=== PATIENT | female | born 1945 | race Caucasian/White ===

== ENCOUNTER 2019-05-09 16:45 | Inpatient (IN) | payer OTHER, MEDICAID ==
[~2019-05-09] VITALS: Ht 165.1 cm; Wt 70.8 kg
[2019-05-09 16:59] VITALS: BP_SYST 117
[2019-05-09] MEDS ORDERED: ALBUTEROL SULFATE 0.083% 2.5 MG/3 ML VIAL.NEB INH ONE ×2 (17:30→19:15)
[2019-05-09] MEDS ORDERED: LEVOFLOXACIN 500 MG/D5W 100 ML IV ONE (17:30)
[2019-05-09 17:52] LABS: BASOPHILS % (AUTO) 0.2 % (0.0-2.0); HEMATOCRIT 38.3 % (36-48); HEMOGLOBIN 12.3 g/dL (12.0-16.0); LYMPHOCYTES # (AUTO) 0.3 K/uL (1.0-5.5); LYMPHOCYTES % (AUTO) 2.6 % (20.5-51.5); MEAN CORPUSCULAR HEMOGLOBIN 29 pg (27-31); MEAN CORPUSCULAR HGB CONC 32 % (32-36); MEAN CORPUSCULAR VOLUME 91 fL (79.0-98.0); MONOCYTES % (AUTO) 8.2 % (1.7-9.3); NEUTROPHILS # (AUTO) 11.3 K/uL (1.8-7.7); PLATELET COUNT (AUTO) 245 K/uL (130-430); RED BLOOD CELL COUNT(AUTO) 4.21 MIL/uL (4.2-6.2); RED CELL DISTRIBUTION WIDTH 14.7 % (9.0-15.0); WHITE BLOOD COUNT (AUTO) 12.7 K/uL (4.8-10.8)
[2019-05-09 18:10] LABS: ANION GAP 6 (5-15); CALCIUM 9.2 mg/dL (8.4-11.0); CHLORIDE 104 mmol/L (98-107); CREATININE 1.01 mg/dL (0.55-1.30); GLUCOSE 151 mg/dL (70-99); INR 1.2 (0.8-1.2); POTASSIUM 4.3 mmol/L (3.5-5.1); PROTHROMBIN TIME 11.7 SECS (9.5-12.5); SODIUM SERUM 139 mmol/L (136-145); UREA NITROGEN, BLOOD 33 mg/dL (8-21)
[2019-05-09 18:15] LABS: ALANINE AMINOTRANSFERASE 6 U/L (12-78); ASPARTATE AMINOTRANSFERASE 15 U/L (10-37); TOTAL BILIRUBIN 0.5 mg/dL (0.0-1.0)
[2019-05-09] MEDS ORDERED: PRO40 PO (18:57)
[2019-05-09] MEDS ORDERED: ATEN-41 PO (18:57)
[2019-05-09] MEDS ORDERED: APIX5TAB4 PO (18:57)
[2019-05-09] MEDS ORDERED: DOCU-144 PO (18:57)
[2019-05-09] MEDS ORDERED: LISI-600 PO (18:57)
[2019-05-09] MEDS ORDERED: NIFE-2 PO (18:57)
[2019-05-09] MEDS ORDERED: CARB-62 PO (18:57)
[2019-05-09] MEDS ORDERED: ROTI1PAT7 TP (18:57)
[2019-05-09] MEDS ORDERED: FUROSEMIDE 40 MG/4 ML VIAL IVP ONE (19:00)
[2019-05-09] MEDS ORDERED: OSELTAMIVIR PHOSPHATE 75 MG CAPSULE PO ONE (19:30)
[2019-05-09] MEDS ORDERED: NS 500 ML IV ONE (20:15)
[2019-05-09] MEDS ORDERED: NS 250 ML IV ONE (22:30)
[2019-05-10] VITALS (24 sets, daily range): BP systolic 89–143
[2019-05-10] MEDS ORDERED: LORazepam 2 MG/ML VIAL IVP ONE (00:30)
[2019-05-10] MEDS ORDERED: NS 250 ML IV ONE (04:30)
[2019-05-10] MEDS: NACL 0.9% 1,000 ML IV SCH ×2 (05:05→17:04)
[2019-05-10 05:36] LABS: BASOPHILS % (AUTO) 0.1 % (0.0-2.0); HEMATOCRIT 36.9 % (36-48); HEMOGLOBIN 11.9 g/dL (12.0-16.0); LYMPHOCYTES % (AUTO) 9.5 % (20.5-51.5); MEAN CORPUSCULAR HEMOGLOBIN 29 pg (27-31); MEAN CORPUSCULAR HGB CONC 32 % (32-36); MEAN CORPUSCULAR VOLUME 91 fL (79.0-98.0); MONOCYTES % (AUTO) 9.4 % (1.7-9.3); NEUTROPHILS # (AUTO) 8.4 K/uL (1.8-7.7); PLATELET COUNT (AUTO) 213 K/uL (130-430); RED BLOOD CELL COUNT(AUTO) 4.05 MIL/uL (4.2-6.2); RED CELL DISTRIBUTION WIDTH 14.7 % (9.0-15.0); WHITE BLOOD COUNT (AUTO) 10.4 K/uL (4.8-10.8)
[2019-05-10 05:38] LABS: ALANINE AMINOTRANSFERASE 12 U/L (12-78); ALBUMIN 2.4 g/dL (3.4-4.8); ANION GAP 3 (5-15); ASPARTATE AMINOTRANSFERASE 14 U/L (10-37); CALCIUM 8.8 mg/dL (8.4-11.0); CHLORIDE 107 mmol/L (98-107); GLUCOSE 110 mg/dL (70-99); SODIUM SERUM 143 mmol/L (136-145); TOTAL BILIRUBIN 0.4 mg/dL (0.0-1.0); UREA NITROGEN, BLOOD 36 mg/dL (8-21)
[2019-05-10 07:55] LABS: THYROID STIMULATING HORMONE 1.05 uIu/mL (0.36-3.74)
[2019-05-10] MEDS: cefTRIAXone 1 GM in D5W 50 ML IV SCH (08:59)
[2019-05-10] MEDS: DOCUSATE SODIUM 100 MG CAPSULE PO SCH ×2 (09:00→20:22)
[2019-05-10] MEDS: PANTOPRAZOLE SODIUM 40 MG TAB PO SCH (09:00)
[2019-05-10] MEDS: IPRATROPIUM BROM 0.5 MG/2.5 ML VIAL.NEB (ATROVENT) INH SCH ×2 (13:00→19:00)
[2019-05-10] MEDS: ALBUTEROL SULFATE 0.083% 2.5 MG/3 ML VIAL.NEB INH SCH ×2 (13:00→19:00)
[2019-05-10] MEDS ORDERED: methylPREDNISolone SOD SUCC/PF 62.5 MG/ML VIAL IVP ONE (15:45)
[2019-05-10 20:02] LABS: BILIRUBIN,URINE NEGATIVE (NEGATIVE); BLOOD, URINE 1+ (NEGATIVE); CLARITY/URINE CLEAR (CLEAR); COLOR,URINE YELLOW (YELLOW); GLUCOSE,URINE NEGATIVE (NEGATIVE); KETONES,URINE 2+ (NEGATIVE); LEUKOCYTE ESTERASE ,URINE NEGATIVE (NEGATIVE); NITRITE, URINE NEGATIVE (NEGATIVE); PH,URINE 6.5 (5.0-8.0); PROTEIN URINE NEGATIVE (NEGATIVE)
[2019-05-10 20:03] LABS: BACTERIA,URINE FEW /HPF (None Seen)
[2019-05-10 20:04] LABS: MUCUS,URINE None Seen /LPF (None Seen)
[2019-05-10] MEDS: APIXABAN 2.5 MG TABLET PO SCH (20:22)
[2019-05-10] MEDS: OSELTAMIVIR PHOSPHATE 75 MG CAPSULE PO SCH (20:22)
[2019-05-10] MEDS: methylPREDNISolone SOD SUCC/PF 62.5 MG/ML VIAL IVP SCH (21:11)
[2019-05-11] VITALS (24 sets, daily range): BP systolic 113–152
[2019-05-11] MEDS: NACL 0.9% 1,000 ML IV SCH (00:57)
[2019-05-11] MEDS: IPRATROPIUM BROM 0.5 MG/2.5 ML VIAL.NEB (ATROVENT) INH SCH ×4 (01:02→19:56)
[2019-05-11] MEDS: ALBUTEROL SULFATE 0.083% 2.5 MG/3 ML VIAL.NEB INH SCH ×4 (01:02→19:56)
[2019-05-11] MEDS: methylPREDNISolone SOD SUCC/PF 62.5 MG/ML VIAL IVP SCH ×3 (05:35→22:26)
[2019-05-11 06:21] LABS: ALANINE AMINOTRANSFERASE 14 U/L (12-78); ALBUMIN 2.2 g/dL (3.4-4.8); ANION GAP 9 (5-15); ASPARTATE AMINOTRANSFERASE 14 U/L (10-37); CHLORIDE 109 mmol/L (98-107); CREATININE 0.66 mg/dL (0.55-1.30); GLUCOSE 155 mg/dL (70-99); POTASSIUM 3.8 mmol/L (3.5-5.1); SODIUM SERUM 145 mmol/L (136-145); TOTAL BILIRUBIN 0.5 mg/dL (0.0-1.0); UREA NITROGEN, BLOOD 23 mg/dL (8-21)
[2019-05-11 06:36] LABS: BASOPHILS % (AUTO) 0.1 % (0.0-2.0); HEMATOCRIT 38.4 % (36-48); HEMOGLOBIN 12.5 g/dL (12.0-16.0); LYMPHOCYTES # (AUTO) 0.3 K/uL (1.0-5.5); LYMPHOCYTES % (AUTO) 3.1 % (20.5-51.5); MEAN CORPUSCULAR HEMOGLOBIN 30 pg (27-31); MEAN CORPUSCULAR HGB CONC 33 % (32-36); MEAN CORPUSCULAR VOLUME 91 fL (79.0-98.0); MONOCYTES # (AUTO) 0.2 K/uL (0.0-1.0); MONOCYTES % (AUTO) 1.6 % (1.7-9.3); NEUTROPHILS # (AUTO) 10.2 K/uL (1.8-7.7); NEUTROPHILS % (AUTO) 95.2 % (40.0-70.0); PLATELET COUNT (AUTO) 252 K/uL (130-430); RED BLOOD CELL COUNT(AUTO) 4.23 MIL/uL (4.2-6.2); RED CELL DISTRIBUTION WIDTH 14.3 % (9.0-15.0); WHITE BLOOD COUNT (AUTO) 10.8 K/uL (4.8-10.8)
[2019-05-11] MEDS: OSELTAMIVIR PHOSPHATE 75 MG CAPSULE PO SCH ×2 (09:00→20:26)
[2019-05-11] MEDS: APIXABAN 2.5 MG TABLET PO SCH ×2 (09:00→20:27)
[2019-05-11] MEDS: PANTOPRAZOLE SODIUM 40 MG TAB PO SCH (09:00)
[2019-05-11] MEDS: DOCUSATE SODIUM 100 MG CAPSULE PO SCH ×2 (09:00→20:26)
[2019-05-11] MEDS: cefTRIAXone 1 GM in D5W 50 ML IV SCH (10:25)
[2019-05-11] MEDS: D5/0.45 NS 1,000 ML IV SCH ×2 (10:47→22:26)
[2019-05-11] MEDS ORDERED: FUROSEMIDE 20 MG/2 ML VIAL IVP ONE (16:45)
[2019-05-11] MEDS: LORazepam 1 MG TABLET PO PRN (22:27)
[2019-05-12] VITALS (24 sets, daily range): BP systolic 98–177
[2019-05-12] MEDS: IPRATROPIUM BROM 0.5 MG/2.5 ML VIAL.NEB (ATROVENT) INH SCH ×4 (01:11→19:30)
[2019-05-12] MEDS: ALBUTEROL SULFATE 0.083% 2.5 MG/3 ML VIAL.NEB INH SCH ×4 (01:11→19:30)
[2019-05-12] MEDS: DIGOXIN 0.5 MG/2 ML AMP IVP ONE ×2 (05:10→06:10)
[2019-05-12] MEDS ORDERED: NOREPINEPHRINE BITARTRATE 4 MG in D5W 246 ML IV PRN (05:15)
[2019-05-12] MEDS ORDERED: NOREPINEPHRINE 4 MG/4 ML VIAL IV ONE (05:22)
[2019-05-12] MEDS ORDERED: DIGOXIN 0.5 MG/2 ML AMP ONE (05:22)
[2019-05-12] MEDS: methylPREDNISolone SOD SUCC/PF 62.5 MG/ML VIAL IVP SCH ×3 (05:28→21:07)
[2019-05-12] MEDS ORDERED: DIGOXIN 0.5 MG/2 ML AMP IVP ONE (07:10)
[2019-05-12] MEDS ORDERED: METOPROLOL TARTRATE 5 MG/5 ML VIAL IVP ONE (08:00)
[2019-05-12] MEDS ORDERED: AMIODARONE HCL 200 MG TABLET PO ONE (08:00)
[2019-05-12 08:13] LABS: ALANINE AMINOTRANSFERASE 16 U/L (12-78); ALBUMIN 2.2 g/dL (3.4-4.8); ANION GAP 7 (5-15); ASPARTATE AMINOTRANSFERASE 17 U/L (10-37); CALCIUM 8.9 mg/dL (8.4-11.0); CHLORIDE 107 mmol/L (98-107); CREATININE 0.81 mg/dL (0.55-1.30); GLUCOSE 202 mg/dL (70-99); SODIUM SERUM 145 mmol/L (136-145); TOTAL BILIRUBIN 0.3 mg/dL (0.0-1.0); UREA NITROGEN, BLOOD 32 mg/dL (8-21)
[2019-05-12 08:21] LABS: HEMATOCRIT 38.9 % (36-48); HEMOGLOBIN 12.2 g/dL (12.0-16.0); LYMPHOCYTES # (AUTO) 0.2 K/uL (1.0-5.5); LYMPHOCYTES % (AUTO) 1.3 % (20.5-51.5); MEAN CORPUSCULAR HEMOGLOBIN 29 pg (27-31); MEAN CORPUSCULAR HGB CONC 31 % (32-36); MEAN CORPUSCULAR VOLUME 92 fL (79.0-98.0); MONOCYTES # (AUTO) 0.6 K/uL (0.0-1.0); MONOCYTES % (AUTO) 4.1 % (1.7-9.3); NEUTROPHILS # (AUTO) 14.8 K/uL (1.8-7.7); NEUTROPHILS % (AUTO) 94.6 % (40.0-70.0); PLATELET COUNT (AUTO) 353 K/uL (130-430); RED BLOOD CELL COUNT(AUTO) 4.25 MIL/uL (4.2-6.2); RED CELL DISTRIBUTION WIDTH 15.1 % (9.0-15.0); WHITE BLOOD COUNT (AUTO) 15.7 K/uL (4.8-10.8)
[2019-05-12] MEDS: cefTRIAXone 1 GM in D5W 50 ML IV SCH (08:49)
[2019-05-12] MEDS: PANTOPRAZOLE SODIUM 40 MG TAB PO SCH (08:51)
[2019-05-12] MEDS: DOCUSATE SODIUM 100 MG CAPSULE PO SCH ×2 (08:51→21:03)
[2019-05-12] MEDS: OSELTAMIVIR PHOSPHATE 75 MG CAPSULE PO SCH ×2 (08:51→21:04)
[2019-05-12] MEDS: APIXABAN 2.5 MG TABLET PO SCH ×2 (08:53→21:08)
[2019-05-12] MEDS: AMIODARONE HCL 200 MG TABLET PO SCH ×2 (15:00→21:04)
[2019-05-12] MEDS: D5/0.45 NS 1,000 ML IV SCH ×2 (15:00→23:35)
[2019-05-12] MEDS: LORazepam 1 MG TABLET PO PRN (23:36)
[2019-05-13] VITALS (21 sets, daily range): BP systolic 114–169
[2019-05-13] MEDS: ALBUTEROL SULFATE 0.083% 2.5 MG/3 ML VIAL.NEB INH SCH ×4 (02:17→19:59)
[2019-05-13] MEDS: IPRATROPIUM BROM 0.5 MG/2.5 ML VIAL.NEB (ATROVENT) INH SCH ×4 (02:17→19:59)
[2019-05-13] MEDS: methylPREDNISolone SOD SUCC/PF 62.5 MG/ML VIAL IVP SCH (05:27)
[2019-05-13] MEDS: AMIODARONE HCL 200 MG TABLET PO SCH ×3 (05:28→23:39)
[2019-05-13 05:58] LABS: BASOPHILS % (AUTO) 0.1 % (0.0-2.0); HEMOGLOBIN 12.7 g/dL (12.0-16.0); LYMPHOCYTES # (AUTO) 0.3 K/uL (1.0-5.5); LYMPHOCYTES % (AUTO) 2.4 % (20.5-51.5); MEAN CORPUSCULAR HEMOGLOBIN 29 pg (27-31); MEAN CORPUSCULAR HGB CONC 32 % (32-36); MEAN CORPUSCULAR VOLUME 91 fL (79.0-98.0); MONOCYTES # (AUTO) 0.4 K/uL (0.0-1.0); MONOCYTES % (AUTO) 3.3 % (1.7-9.3); NEUTROPHILS # (AUTO) 11.7 K/uL (1.8-7.7); NEUTROPHILS % (AUTO) 94.2 % (40.0-70.0); PLATELET COUNT (AUTO) 344 K/uL (130-430); RED BLOOD CELL COUNT(AUTO) 4.38 MIL/uL (4.2-6.2); RED CELL DISTRIBUTION WIDTH 14.8 % (9.0-15.0); WHITE BLOOD COUNT (AUTO) 12.4 K/uL (4.8-10.8)
[2019-05-13 06:28] LABS: ANION GAP 8 (5-15); CALCIUM 9.4 mg/dL (8.4-11.0); CHLORIDE 107 mmol/L (98-107); CREATININE 0.78 mg/dL (0.55-1.30); GLUCOSE 157 mg/dL (70-99); POTASSIUM 4.3 mmol/L (3.5-5.1); SODIUM SERUM 142 mmol/L (136-145); UREA NITROGEN, BLOOD 36 mg/dL (8-21)
[2019-05-13] MEDS: cefTRIAXone 1 GM in D5W 50 ML IV SCH (08:50)
[2019-05-13] MEDS: DOCUSATE SODIUM 100 MG CAPSULE PO SCH ×2 (08:51→23:39)
[2019-05-13] MEDS: OSELTAMIVIR PHOSPHATE 75 MG CAPSULE PO SCH ×2 (08:51→21:00)
[2019-05-13] MEDS: APIXABAN 2.5 MG TABLET PO SCH ×2 (08:51→21:00)
[2019-05-13] MEDS: PANTOPRAZOLE SODIUM 40 MG TAB PO SCH (08:51)
[2019-05-13] MEDS ORDERED: METOPROLOL TARTRATE 25 MG TABLET PO ONE (09:30)
[2019-05-13] MEDS: METOPROLOL TARTRATE 25 MG TABLET PO SCH (21:00)
[2019-05-13] MEDS: PREDNISONE 20 MG TABLET PO SCH (21:00)
[2019-05-14] VITALS (17 sets, daily range): BP systolic 112–189
[2019-05-14] MEDS: IPRATROPIUM BROM 0.5 MG/2.5 ML VIAL.NEB (ATROVENT) INH SCH ×4 (01:45→20:07)
[2019-05-14] MEDS: ALBUTEROL SULFATE 0.083% 2.5 MG/3 ML VIAL.NEB INH SCH ×4 (01:45→20:07)
[2019-05-14] MEDS: AMIODARONE HCL 200 MG TABLET PO SCH ×3 (05:57→22:44)
[2019-05-14] MEDS: D5/0.45 NS 1,000 ML IV SCH (05:58)
[2019-05-14 07:11] LABS: HEMATOCRIT 38.9 % (36-48); HEMOGLOBIN 12.6 g/dL (12.0-16.0); LYMPHOCYTES # (AUTO) 0.4 K/uL (1.0-5.5); LYMPHOCYTES % (AUTO) 3.8 % (20.5-51.5); MEAN CORPUSCULAR HEMOGLOBIN 29 pg (27-31); MEAN CORPUSCULAR HGB CONC 33 % (32-36); MEAN CORPUSCULAR VOLUME 90 fL (79.0-98.0); MONOCYTES # (AUTO) 0.9 K/uL (0.0-1.0); MONOCYTES % (AUTO) 9.2 % (1.7-9.3); NEUTROPHILS # (AUTO) 8.9 K/uL (1.8-7.7); PLATELET COUNT (AUTO) 392 K/uL (130-430); RED BLOOD CELL COUNT(AUTO) 4.32 MIL/uL (4.2-6.2); RED CELL DISTRIBUTION WIDTH 14.3 % (9.0-15.0); WHITE BLOOD COUNT (AUTO) 10.2 K/uL (4.8-10.8)
[2019-05-14] MEDS: LORazepam 1 MG TABLET PO PRN ×2 (08:15→17:38)
[2019-05-14] MEDS: PANTOPRAZOLE SODIUM 40 MG TAB PO SCH (08:15)
[2019-05-14] MEDS: cefTRIAXone 1 GM in D5W 50 ML IV SCH (08:15)
[2019-05-14] MEDS: APIXABAN 2.5 MG TABLET PO SCH ×2 (08:16→22:27)
[2019-05-14] MEDS: DOCUSATE SODIUM 100 MG CAPSULE PO SCH ×2 (08:16→22:24)
[2019-05-14] MEDS: PREDNISONE 20 MG TABLET PO SCH ×2 (08:16→22:27)
[2019-05-14] MEDS: OSELTAMIVIR PHOSPHATE 75 MG CAPSULE PO SCH ×2 (08:16→22:23)
[2019-05-14] MEDS: METOPROLOL TARTRATE 25 MG TABLET PO SCH ×2 (08:17→22:26)
[2019-05-14] MEDS ORDERED: FLUCONAZOLE 200 mg/ NS 100 ML IV ONE (11:00)
[2019-05-14] MEDS ORDERED: FUROSEMIDE 40 MG/4 ML VIAL IVP ONE (11:15)
[2019-05-14] MEDS: ACETAMINOPHEN 650 MG/20.3 ML UDC PO PRN (17:38)
[2019-05-15] VITALS (24 sets, daily range): BP systolic 101–179
[2019-05-15] MEDS: ALBUTEROL SULFATE 0.083% 2.5 MG/3 ML VIAL.NEB INH SCH ×5 (00:59→19:32)
[2019-05-15] MEDS: IPRATROPIUM BROM 0.5 MG/2.5 ML VIAL.NEB (ATROVENT) INH SCH ×5 (00:59→19:32)
[2019-05-15 06:14] LABS: BASOPHILS % (AUTO) 0.2 % (0.0-2.0); HEMATOCRIT 39.1 % (36-48); HEMOGLOBIN 12.6 g/dL (12.0-16.0); LYMPHOCYTES # (AUTO) 0.4 K/uL (1.0-5.5); LYMPHOCYTES % (AUTO) 3.9 % (20.5-51.5); MEAN CORPUSCULAR HEMOGLOBIN 29 pg (27-31); MEAN CORPUSCULAR HGB CONC 32 % (32-36); MEAN CORPUSCULAR VOLUME 90 fL (79.0-98.0); MONOCYTES # (AUTO) 0.9 K/uL (0.0-1.0); MONOCYTES % (AUTO) 8.7 % (1.7-9.3); NEUTROPHILS # (AUTO) 8.7 K/uL (1.8-7.7); PLATELET COUNT (AUTO) 372 K/uL (130-430); RED BLOOD CELL COUNT(AUTO) 4.33 MIL/uL (4.2-6.2); RED CELL DISTRIBUTION WIDTH 14.7 % (9.0-15.0); WHITE BLOOD COUNT (AUTO) 9.9 K/uL (4.8-10.8)
[2019-05-15 06:44] LABS: ALANINE AMINOTRANSFERASE 14 U/L (12-78); ALBUMIN 2.2 g/dL (3.4-4.8); ANION GAP 2 (5-15); ASPARTATE AMINOTRANSFERASE 10 U/L (10-37); CALCIUM 9.5 mg/dL (8.4-11.0); CHLORIDE 105 mmol/L (98-107); CREATININE 0.85 mg/dL (0.55-1.30); GLUCOSE 150 mg/dL (70-99); SODIUM SERUM 141 mmol/L (136-145); TOTAL BILIRUBIN 0.3 mg/dL (0.0-1.0); UREA NITROGEN, BLOOD 39 mg/dL (8-21)
[2019-05-15] MEDS: AMIODARONE HCL 200 MG TABLET PO SCH ×2 (07:09→08:36)
[2019-05-15] MEDS ORDERED: BISACODYL 10 MG/SUPPOSITORY RC PRN (07:45)
[2019-05-15 07:54] LABS: POTASSIUM 5.8 mmol/L (3.5-5.1)
[2019-05-15] MEDS ORDERED: SODIUM POLYSTYRENE SULFONATE 15 GM/60 ML UDBTL PO ONE (08:00)
[2019-05-15] MEDS: OSELTAMIVIR PHOSPHATE 75 MG CAPSULE PO SCH (08:59)
[2019-05-15] MEDS: cefTRIAXone 1 GM in D5W 50 ML IV SCH (08:59)
[2019-05-15] MEDS: METOPROLOL TARTRATE 25 MG TABLET PO SCH ×2 (09:00→21:00)
[2019-05-15] MEDS: DOCUSATE SODIUM 100 MG CAPSULE PO SCH ×2 (09:00→21:27)
[2019-05-15] MEDS: PREDNISONE 20 MG TABLET PO SCH (09:00)
[2019-05-15] MEDS: PANTOPRAZOLE SODIUM 40 MG TAB PO SCH (09:00)
[2019-05-15] MEDS ORDERED: DILTIAZEM HCL 60 MG TABLET PO ONE (09:00)
[2019-05-15] MEDS: DILTIAZEM HCL 60 MG TABLET PO SCH ×3 (09:00→21:23)
[2019-05-15] MEDS: APIXABAN 2.5 MG TABLET PO SCH ×2 (09:02→21:26)
[2019-05-15] MEDS: D5/0.45 NS 1,000 ML IV SCH (09:03)
[2019-05-15 09:49] LABS: NEUTROPHILS % (AUTO) 87.2 % (40.0-70.0)
[2019-05-15] MEDS: LORazepam 1 MG TABLET PO PRN (12:54)
[2019-05-15] MEDS ORDERED: FLUCONAZOLE 200 mg/ NS 100 ML IV ONE (17:00)
[2019-05-15] MEDS: ACETAMINOPHEN 650 MG/20.3 ML UDC PO PRN ×2 (18:31→21:27)
[2019-05-15] MEDS: PREDNISONE 10 MG TABLET PO SCH (21:24)
[2019-05-16] VITALS (22 sets, daily range): BP systolic 97–152
[2019-05-16] MEDS: ALBUTEROL SULFATE 0.083% 2.5 MG/3 ML VIAL.NEB INH SCH ×4 (01:22→19:25)
[2019-05-16] MEDS: IPRATROPIUM BROM 0.5 MG/2.5 ML VIAL.NEB (ATROVENT) INH SCH ×4 (01:23→19:25)
[2019-05-16] MEDS: DILTIAZEM HCL 60 MG TABLET PO SCH ×3 (05:33→21:26)
[2019-05-16 05:57] LABS: BASOPHILS # (AUTO) 0.1 K/uL (0.0-0.2); BASOPHILS % (AUTO) 0.5 % (0.0-2.0); HEMATOCRIT 40.9 % (36-48); HEMOGLOBIN 12.9 g/dL (12.0-16.0); LYMPHOCYTES # (AUTO) 0.4 K/uL (1.0-5.5); LYMPHOCYTES % (AUTO) 3.4 % (20.5-51.5); MEAN CORPUSCULAR HEMOGLOBIN 29 pg (27-31); MEAN CORPUSCULAR HGB CONC 32 % (32-36); MEAN CORPUSCULAR VOLUME 91 fL (79.0-98.0); MONOCYTES # (AUTO) 0.7 K/uL (0.0-1.0); MONOCYTES % (AUTO) 5.2 % (1.7-9.3); NEUTROPHILS # (AUTO) 11.6 K/uL (1.8-7.7); NEUTROPHILS % (AUTO) 90.9 % (40.0-70.0); PLATELET COUNT (AUTO) 398 K/uL (130-430); RED BLOOD CELL COUNT(AUTO) 4.49 MIL/uL (4.2-6.2); RED CELL DISTRIBUTION WIDTH 14.6 % (9.0-15.0); WHITE BLOOD COUNT (AUTO) 12.8 K/uL (4.8-10.8)
[2019-05-16 06:15] LABS: ALANINE AMINOTRANSFERASE 14 U/L (12-78); ALBUMIN 2.2 g/dL (3.4-4.8); ASPARTATE AMINOTRANSFERASE 13 U/L (10-37); CALCIUM 8.9 mg/dL (8.4-11.0); CHLORIDE 102 mmol/L (98-107); CREATININE 0.64 mg/dL (0.55-1.30); GLUCOSE 127 mg/dL (70-99); POTASSIUM 4.7 mmol/L (3.5-5.1); SODIUM SERUM 133 mmol/L (136-145); TOTAL BILIRUBIN 0.4 mg/dL (0.0-1.0); UREA NITROGEN, BLOOD 30 mg/dL (8-21)
[2019-05-16 06:53] LABS: ANION GAP < 3 (5-15)
[2019-05-16] MEDS: ROTIGOTINE TP SCH ×2 (09:00→13:58)
[2019-05-16] MEDS: cefTRIAXone 1 GM in D5W 50 ML IV SCH (10:32)
[2019-05-16] MEDS: DOCUSATE SODIUM 100 MG CAPSULE PO SCH ×2 (10:33→21:24)
[2019-05-16] MEDS: APIXABAN 2.5 MG TABLET PO SCH ×2 (10:33→21:29)
[2019-05-16] MEDS: AMIODARONE HCL 200 MG TABLET PO SCH (10:36)
[2019-05-16] MEDS: PANTOPRAZOLE SODIUM 40 MG TAB PO SCH (10:37)
[2019-05-16] MEDS: PREDNISONE 10 MG TABLET PO SCH ×2 (10:37→21:25)
[2019-05-16] MEDS: METOPROLOL TARTRATE 25 MG TABLET PO SCH ×2 (10:37→21:25)
[2019-05-16] MEDS: D5/0.45 NS 1,000 ML IV SCH (10:41)
[2019-05-16] MEDS: CARBIDOPA/LEVODOPA 25/250 MG TABLET PO SCH ×3 (12:48→21:25)
[2019-05-17] VITALS (8 sets, daily range): BP systolic 94–128
[2019-05-17] MEDS: IPRATROPIUM BROM 0.5 MG/2.5 ML VIAL.NEB (ATROVENT) INH SCH ×4 (02:10→19:00)
[2019-05-17] MEDS: ALBUTEROL SULFATE 0.083% 2.5 MG/3 ML VIAL.NEB INH SCH ×4 (02:10→19:00)
[2019-05-17] MEDS: DILTIAZEM HCL 60 MG TABLET PO SCH ×2 (06:25→14:00)
[2019-05-17 07:21] LABS: ANION GAP 3 (5-15); CALCIUM 8.8 mg/dL (8.4-11.0); CHLORIDE 102 mmol/L (98-107); CREATININE 0.72 mg/dL (0.55-1.30); GLUCOSE 124 mg/dL (70-99); POTASSIUM 4.7 mmol/L (3.5-5.1); SODIUM SERUM 138 mmol/L (136-145); UREA NITROGEN, BLOOD 33 mg/dL (8-21)
[2019-05-17 07:28] LABS: BASOPHILS % (AUTO) 0.1 % (0.0-2.0); EOSINOPHILS # (AUTO) 0.1 K/uL (0.0-0.4); EOSINOPHILS % (AUTO) 0.4 % (0.0-4.0); HEMATOCRIT 40.1 % (36-48); HEMOGLOBIN 12.9 g/dL (12.0-16.0); LYMPHOCYTES # (AUTO) 0.4 K/uL (1.0-5.5); LYMPHOCYTES % (AUTO) 3.2 % (20.5-51.5); MEAN CORPUSCULAR HEMOGLOBIN 29 pg (27-31); MEAN CORPUSCULAR HGB CONC 32 % (32-36); MEAN CORPUSCULAR VOLUME 90 fL (79.0-98.0); MONOCYTES # (AUTO) 0.7 K/uL (0.0-1.0); NEUTROPHILS # (AUTO) 12.8 K/uL (1.8-7.7); NEUTROPHILS % (AUTO) 91.3 % (40.0-70.0); PLATELET COUNT (AUTO) 384 K/uL (130-430); RED BLOOD CELL COUNT(AUTO) 4.46 MIL/uL (4.2-6.2); RED CELL DISTRIBUTION WIDTH 14.6 % (9.0-15.0)
[2019-05-17] MEDS ORDERED: ONDANSETRON HCL 4 MG/2 ML VIAL IVP PRN (08:45)
[2019-05-17] MEDS: CARBIDOPA/LEVODOPA 25/250 MG TABLET PO SCH ×4 (08:53→21:34)
[2019-05-17] MEDS: AMIODARONE HCL 200 MG TABLET PO SCH (08:53)
[2019-05-17] MEDS: DOCUSATE SODIUM 100 MG CAPSULE PO SCH ×2 (08:53→21:34)
[2019-05-17] MEDS: PANTOPRAZOLE SODIUM 40 MG TAB PO SCH (08:53)
[2019-05-17] MEDS: METOPROLOL TARTRATE 25 MG TABLET PO SCH ×2 (08:54→21:00)
[2019-05-17] MEDS: PREDNISONE 10 MG TABLET PO SCH (08:54)
[2019-05-17] MEDS: cefTRIAXone 1 GM in D5W 50 ML IV SCH (08:55)
[2019-05-17] MEDS: APIXABAN 2.5 MG TABLET PO SCH ×2 (08:55→21:37)
[2019-05-17] MEDS: D5/0.45 NS 1,000 ML IV SCH (09:13)
[2019-05-17] MEDS ORDERED: ROTIGOTINE TP ONE (12:45)
[2019-05-17] MEDS ORDERED: PREDNISONE 10 MG TABLET PO ONE (14:30)
[2019-05-17] MEDS: LORazepam 1 MG TABLET PO PRN (17:56)
[2019-05-18] MEDS: DILTIAZEM HCL 60 MG TABLET PO SCH ×4 (01:00→21:57)
[2019-05-18] MEDS: IPRATROPIUM BROM 0.5 MG/2.5 ML VIAL.NEB (ATROVENT) INH SCH ×4 (01:35→19:58)
[2019-05-18] MEDS: ALBUTEROL SULFATE 0.083% 2.5 MG/3 ML VIAL.NEB INH SCH ×4 (01:35→19:58)
[2019-05-18 02:35] VITALS: BP_SYST 136
[2019-05-18 04:00] VITALS: BP_SYST 148
[2019-05-18] MEDS: LORazepam 1 MG TABLET PO PRN (05:51)
[2019-05-18 08:00] VITALS: BP_SYST 126
[2019-05-18] MEDS: D5/0.45 NS 1,000 ML IV SCH (08:45)
[2019-05-18] MEDS: cefTRIAXone 1 GM in D5W 50 ML IV SCH (08:51)
[2019-05-18] MEDS: PREDNISONE 10 MG TABLET PO SCH (08:53)
[2019-05-18] MEDS: APIXABAN 2.5 MG TABLET PO SCH ×2 (08:53→21:58)
[2019-05-18] MEDS: METOPROLOL TARTRATE 25 MG TABLET PO SCH ×2 (08:54→21:58)
[2019-05-18] MEDS: DOCUSATE SODIUM 100 MG CAPSULE PO SCH ×2 (08:54→21:57)
[2019-05-18] MEDS: PANTOPRAZOLE SODIUM 40 MG TAB PO SCH (08:56)
[2019-05-18] MEDS: AMIODARONE HCL 200 MG TABLET PO SCH (08:56)
[2019-05-18] MEDS: ROTIGOTINE TP SCH (08:57)
[2019-05-18] MEDS: CARBIDOPA/LEVODOPA 25/250 MG TABLET PO SCH ×4 (08:58→21:57)
[2019-05-18 12:22] VITALS: BP_SYST 102
[2019-05-18 15:58] VITALS: BP_SYST 119
[2019-05-18 21:47] VITALS: BP_SYST 109
[2019-05-19 00:28] VITALS: BP_SYST 121
[2019-05-19] MEDS: IPRATROPIUM BROM 0.5 MG/2.5 ML VIAL.NEB (ATROVENT) INH SCH ×4 (01:00→20:05)
[2019-05-19] MEDS: ALBUTEROL SULFATE 0.083% 2.5 MG/3 ML VIAL.NEB INH SCH ×4 (01:00→20:05)
[2019-05-19] MEDS: LORazepam 1 MG TABLET PO PRN ×3 (02:54→21:43)
[2019-05-19] MEDS: DILTIAZEM HCL 60 MG TABLET PO SCH ×3 (05:43→21:42)
[2019-05-19 07:18] LABS: CHLORIDE 95 mmol/L (98-107); CREATININE 0.68 mg/dL (0.55-1.30); GLUCOSE 79 mg/dL (70-99); POTASSIUM 4.1 mmol/L (3.5-5.1); SODIUM SERUM 130 mmol/L (136-145); UREA NITROGEN, BLOOD 21 mg/dL (8-21)
[2019-05-19 07:23] LABS: ANION GAP < 3 (5-15)
[2019-05-19 07:35] LABS: BASOPHILS % (AUTO) 0.1 % (0.0-2.0); EOSINOPHILS # (AUTO) 0.3 K/uL (0.0-0.4); EOSINOPHILS % (AUTO) 3.5 % (0.0-4.0); HEMATOCRIT 38.2 % (36-48); HEMOGLOBIN 12.6 g/dL (12.0-16.0); LYMPHOCYTES % (AUTO) 11.4 % (20.5-51.5); MEAN CORPUSCULAR HEMOGLOBIN 30 pg (27-31); MEAN CORPUSCULAR HGB CONC 33 % (32-36); MEAN CORPUSCULAR VOLUME 90 fL (79.0-98.0); MONOCYTES # (AUTO) 0.7 K/uL (0.0-1.0); MONOCYTES % (AUTO) 8.8 % (1.7-9.3); NEUTROPHILS # (AUTO) 6.5 K/uL (1.8-7.7); NEUTROPHILS % (AUTO) 76.2 % (40.0-70.0); PLATELET COUNT (AUTO) 319 K/uL (130-430); RED BLOOD CELL COUNT(AUTO) 4.27 MIL/uL (4.2-6.2); RED CELL DISTRIBUTION WIDTH 14.4 % (9.0-15.0); WHITE BLOOD COUNT (AUTO) 8.5 K/uL (4.8-10.8)
[2019-05-19] MEDS: D5/0.45 NS 1,000 ML IV SCH ×2 (08:45→22:41)
[2019-05-19] MEDS: cefTRIAXone 1 GM in D5W 50 ML IV SCH (09:40)
[2019-05-19] MEDS: APIXABAN 2.5 MG TABLET PO SCH ×2 (09:44→21:45)
[2019-05-19] MEDS: CARBIDOPA/LEVODOPA 25/250 MG TABLET PO SCH ×4 (09:45→21:40)
[2019-05-19] MEDS: AMIODARONE HCL 200 MG TABLET PO SCH (09:45)
[2019-05-19] MEDS: PREDNISONE 10 MG TABLET PO SCH (09:45)
[2019-05-19] MEDS: DOCUSATE SODIUM 100 MG CAPSULE PO SCH ×2 (09:48→21:40)
[2019-05-19] MEDS: PANTOPRAZOLE SODIUM 40 MG TAB PO SCH (09:55)
[2019-05-19] MEDS: ROTIGOTINE TP SCH (09:56)
[2019-05-19] MEDS: METOPROLOL TARTRATE 25 MG TABLET PO SCH ×2 (09:56→21:43)
[2019-05-19 11:15] VITALS: BP_SYST 117
[2019-05-19 15:23] VITALS: BP_SYST 99
[2019-05-19 19:53] VITALS: BP_SYST 117
[2019-05-20 00:35] VITALS: BP_SYST 123
[2019-05-20] MEDS: ALBUTEROL SULFATE 0.083% 2.5 MG/3 ML VIAL.NEB INH SCH ×4 (01:00→19:24)
[2019-05-20] MEDS: IPRATROPIUM BROM 0.5 MG/2.5 ML VIAL.NEB (ATROVENT) INH SCH ×4 (01:00→19:24)
[2019-05-20] MEDS: DILTIAZEM HCL 60 MG TABLET PO SCH ×3 (06:15→22:35)
[2019-05-20 06:19] VITALS: BP_SYST 134
[2019-05-20 07:20] LABS: ANION GAP 3 (5-15); CALCIUM 8.5 mg/dL (8.4-11.0); CHLORIDE 100 mmol/L (98-107); CREATININE 0.68 mg/dL (0.55-1.30); GLUCOSE 81 mg/dL (70-99); POTASSIUM 4.1 mmol/L (3.5-5.1); SODIUM SERUM 136 mmol/L (136-145); UREA NITROGEN, BLOOD 19 mg/dL (8-21)
[2019-05-20 07:34] LABS: BASOPHILS % (AUTO) 0.1 % (0.0-2.0); EOSINOPHILS # (AUTO) 0.2 K/uL (0.0-0.4); EOSINOPHILS % (AUTO) 2.6 % (0.0-4.0); HEMATOCRIT 37.9 % (36-48); HEMOGLOBIN 12.4 g/dL (12.0-16.0); LYMPHOCYTES # (AUTO) 1.1 K/uL (1.0-5.5); LYMPHOCYTES % (AUTO) 11.3 % (20.5-51.5); MEAN CORPUSCULAR HEMOGLOBIN 29 pg (27-31); MEAN CORPUSCULAR HGB CONC 33 % (32-36); MEAN CORPUSCULAR VOLUME 89 fL (79.0-98.0); MONOCYTES % (AUTO) 9.9 % (1.7-9.3); NEUTROPHILS # (AUTO) 7.4 K/uL (1.8-7.7); NEUTROPHILS % (AUTO) 76.1 % (40.0-70.0); RED BLOOD CELL COUNT(AUTO) 4.24 MIL/uL (4.2-6.2); RED CELL DISTRIBUTION WIDTH 14.5 % (9.0-15.0); WHITE BLOOD COUNT (AUTO) 9.7 K/uL (4.8-10.8)
[2019-05-20 08:00] VITALS: BP_SYST 136
[2019-05-20 08:29] LABS: PLATELET COUNT (AUTO) 352 K/uL (130-430)
[2019-05-20] MEDS: cefTRIAXone 1 GM in D5W 50 ML IV SCH (08:53)
[2019-05-20] MEDS: DOCUSATE SODIUM 100 MG CAPSULE PO SCH ×2 (09:06→22:33)
[2019-05-20] MEDS: AMIODARONE HCL 200 MG TABLET PO SCH (09:06)
[2019-05-20] MEDS: LORazepam 1 MG TABLET PO PRN ×2 (09:06→14:35)
[2019-05-20] MEDS: PREDNISONE 10 MG TABLET PO SCH (09:06)
[2019-05-20] MEDS: APIXABAN 2.5 MG TABLET PO SCH ×2 (09:07→22:37)
[2019-05-20] MEDS: METOPROLOL TARTRATE 25 MG TABLET PO SCH ×2 (09:08→22:34)
[2019-05-20] MEDS: PANTOPRAZOLE SODIUM 40 MG TAB PO SCH (09:08)
[2019-05-20] MEDS: CARBIDOPA/LEVODOPA 25/250 MG TABLET PO SCH ×4 (09:08→22:35)
[2019-05-20] MEDS: ROTIGOTINE TP SCH (09:17)
[2019-05-20 12:27] VITALS: BP_SYST 125
[2019-05-20 16:45] VITALS: BP_SYST 103
[2019-05-20 20:00] VITALS: BP_SYST 115
[2019-05-21 00:26] VITALS: BP_SYST 134
[2019-05-21] MEDS: IPRATROPIUM BROM 0.5 MG/2.5 ML VIAL.NEB (ATROVENT) INH SCH ×4 (01:30→20:11)
[2019-05-21] MEDS: ALBUTEROL SULFATE 0.083% 2.5 MG/3 ML VIAL.NEB INH SCH ×4 (01:30→20:11)
[2019-05-21] MEDS: ACETAMINOPHEN 650 MG/20.3 ML UDC PO PRN (02:27)
[2019-05-21] MEDS: DILTIAZEM HCL 60 MG TABLET PO SCH ×3 (06:52→22:31)
[2019-05-21 08:05] VITALS: BP_SYST 137
[2019-05-21] MEDS: cefTRIAXone 1 GM in D5W 50 ML IV SCH (08:23)
[2019-05-21] MEDS: DOCUSATE SODIUM 100 MG CAPSULE PO SCH ×2 (08:24→21:12)
[2019-05-21] MEDS: AMIODARONE HCL 200 MG TABLET PO SCH (08:24)
[2019-05-21] MEDS: CARBIDOPA/LEVODOPA 25/250 MG TABLET PO SCH ×4 (08:25→21:07)
[2019-05-21] MEDS: METOPROLOL TARTRATE 25 MG TABLET PO SCH ×2 (08:25→21:08)
[2019-05-21] MEDS: ROTIGOTINE TP SCH (08:25)
[2019-05-21] MEDS: PANTOPRAZOLE SODIUM 40 MG TAB PO SCH (08:25)
[2019-05-21] MEDS: PREDNISONE 10 MG TABLET PO SCH (08:25)
[2019-05-21] MEDS: APIXABAN 2.5 MG TABLET PO SCH ×2 (08:26→21:12)
[2019-05-21] MEDS: LORazepam 1 MG TABLET PO PRN (12:15)
[2019-05-21 12:28] VITALS: BP_SYST 117
[2019-05-21] MEDS: PRAMIPEXOLE DI-HCL 0.25 MG TABLET PO SCH ×2 (13:45→22:29)
[2019-05-21 17:00] VITALS: BP_SYST 124
[2019-05-21 20:30] VITALS: BP_SYST 115
[2019-05-22] MEDS: ALBUTEROL SULFATE 0.083% 2.5 MG/3 ML VIAL.NEB INH SCH ×3 (01:00→14:01)
[2019-05-22] MEDS: IPRATROPIUM BROM 0.5 MG/2.5 ML VIAL.NEB (ATROVENT) INH SCH ×3 (01:00→14:01)
[2019-05-22 01:13] VITALS: BP_SYST 118
[2019-05-22] MEDS: PRAMIPEXOLE DI-HCL 0.25 MG TABLET PO SCH ×2 (06:41→13:15)
[2019-05-22] MEDS: DILTIAZEM HCL 60 MG TABLET PO SCH ×2 (06:42→13:15)
[2019-05-22] MEDS: cefTRIAXone 1 GM in D5W 50 ML IV SCH (07:44)
[2019-05-22 08:01] VITALS: BP_SYST 128
[2019-05-22] MEDS: PANTOPRAZOLE SODIUM 40 MG TAB PO SCH (08:16)
[2019-05-22] MEDS: APIXABAN 2.5 MG TABLET PO SCH (08:16)
[2019-05-22] MEDS: PREDNISONE 10 MG TABLET PO SCH (08:16)
[2019-05-22] MEDS: DOCUSATE SODIUM 100 MG CAPSULE PO SCH (08:16)
[2019-05-22] MEDS: CARBIDOPA/LEVODOPA 25/250 MG TABLET PO SCH ×3 (08:16→16:13)
[2019-05-22] MEDS: ROTIGOTINE TP SCH (08:17)
[2019-05-22] MEDS: METOPROLOL TARTRATE 25 MG TABLET PO SCH (08:17)
[2019-05-22] MEDS: AMIODARONE HCL 200 MG TABLET PO SCH (08:17)
[2019-05-22] MEDS ORDERED: SERTRALINE HCL 50 MG TABLET PO SCH (09:00)
[2019-05-22 12:20] VITALS: BP_SYST 113
[2019-05-22 13:00] VITALS: BP_SYST 139
[2019-05-22 16:51] VITALS: BP_SYST 139
== END 2019-05-22 17:57 | DRG 193 ==
LOC: SED 16:45 → SIC 21:21 → STU 05-16 18:25
PROVIDERS: ADMIT Family Medicine; ATTEND Family Medicine
DX: J10.08 Influenza due to other identified influenza virus with other specified pneumonia (principal); J96.01 Acute respiratory failure with hypoxia; J12.9 Viral pneumonia, unspecified; J44.1 Chronic obstructive pulmonary disease with (acute) exacerbation; J44.0 Chronic obstructive pulmonary disease with (acute) lower respiratory infection; E11.9 Type 2 diabetes mellitus without complications; E66.3 Overweight; E78.5 Hyperlipidemia, unspecified; G20 Parkinson's disease; I11.0 Hypertensive heart disease with heart failure; K21.9 Gastro-esophageal reflux disease without esophagitis; R13.10 Dysphagia, unspecified; M81.0 Age-related osteoporosis without current pathological fracture; F02.80 Dementia in other diseases classified elsewhere, unspecified severity, without behavioral disturbance, psychotic disturbance, mood disturbance, and anxiety; F41.1 Generalized anxiety disorder; F31.9 Bipolar disorder, unspecified; I25.10 Atherosclerotic heart disease of native coronary artery without angina pectoris; I48.91 Unspecified atrial fibrillation; I50.9 Heart failure, unspecified; K57.90 Diverticulosis of intestine, part unspecified, without perforation or abscess without bleeding; Z99.3 Dependence on wheelchair; Z87.891 Personal history of nicotine dependence; Z87.440 Personal history of urinary (tract) infections; Z79.01 Long term (current) use of anticoagulants; Z86.711 Personal history of pulmonary embolism; Z88.8 Allergy status to other drugs, medicaments and biological substances; Z79.899 Other long term (current) drug therapy; Z91.041 Radiographic dye allergy status; Z74.01 Bed confinement status
CPT/HCPCS: 36415; 36600; 71045; 80048; 80053; 80061; 81000-TC; 82803-TC; 83605; 83735-TC; 83880; 84443-TC; 84484; 85025; 85610-TC; 86710; 87040-TC; 87070-TC; 87081; 87086; 87205-TC; 92610-GN; 93005; 93970; 94640; 94760; 96361; 96365; 96375; 99285; G9035; J0696; J1160; J1450; J1940; J1956; J2060; J2405; J2930; J3490; J7030; J7060; J7512; J7613